=== PATIENT | female | born 1955 | race Caucasian/White ===

== ENCOUNTER → 2017-02-17 07:16 | Outpatient (CLI) | payer BC ==
[~2017-02-17 07:16] MED LIST: ALBUTEROL0.63 MG/3 INH; AUGMENTIN 500-11 TA1 PO; BAYER CHEWABLE81 MG PO; CO Q-10100 MG PO; COLCRYS0.6 MG PO; LASIX80 MG PO; PLAVIX75 MG PO; PRAVACHOL80 MG PO; RELAFEN750 MG PO; SINGULAIR10 MG PO; SYMBICORT 16010.2 GM INH; SYNTHROID150 MCG PO; ZYLOPRIM300 MG PO
[2017-02-24 10:07] VITALS: BMI 31.8
== END | disposition home or self-care (01) ==
LOC: D.RT 07:16
DX: J44.9 Chronic obstructive pulmonary disease, unspecified (principal)

== ENCOUNTER 2017-02-23 08:15 | Outpatient (CLI) | payer BC ==
[~2017-02-23] VITALS: Ht 157.5 cm; Wt 78.9 kg
--- NOTE | ~2017-02-23 | HEMODYNAMI ---
PATIENT:MADELAINE FRIEND MEDICAL RECORD: [id number] : 57 [id number] ADMISSION DATE: 02/23/17 Generatedon:02/24/20179:47 Patient name: MADELAINE FRIEND Patient #: [id number] : 1955 Date of study: 02/24/2017 Page: Of Hemodynamic Procedure Report Patient Data Patient Demographics Procedure consent was obtained First Name: MADELAINE Gender: Female Last Name: RONNA : 1955 [facility] Initial: L Age: 61 year(s) Patient #: [id number] Race: Unknown SSN: [id number] Additional ID: [id number] Contact details Address: [address] [place] [address] State: [place] City: [place] Zip code: [address] Admission Admission Data Admission Date: 02/23/2017 Admission Time: 8:15 Arrival Date: 02/23/2017 Arrival Time: 10:30 Admit Source: Other Insurance Payor: Private Room #: [id number] health insurance Height (in.): 62 BSA: 1.82 (m2) Height (cm.): 157.48 BMI: 32.74 (kg/m2) Weight (lbs.): 179 Weight (kg.): 81.19 Lab Results Lab Result Date: 02/23/2017 Lab Result Time: 0:00 Biochemistry Name Units Result Min Max BUN mg/dl 17 --(---*)-- 7 18 Creatinine mg/dl 1.1 --(--*-)-- 0.6 1.3 CBC Name Units Result Min Max Hemoglobin g/dl 12.5 *-(----)-- 13.5 17.5 Procedure Procedure Types Cath Procedure PCI Procedure Coronary Stent Initial Miscellaneous Procedures Moderate Sedation up to 15 minutes Procedure Description Procedure Date Procedure Date: 02/24/2017 Procedure Start Time: 9:36 Procedure End Time: 9:46 Procedure Staff Name Function Simone Chung MD Performing Physician Swathi Sorensen RT Scrub Latoya Richter RN Nurse Ahsan Liu RT Monitor Gabino Meredith RT Monitor Procedure Data Cath Procedure Fluoroscopy Diagnostic fluoroscopy Total fluoroscopy Time: 1.1 time: 1.1 min min Diagnostic fluoroscopy Total fluoroscopy dose: 101 dose: 101 mGy mGy Contrast Material Contrast Material Type Amount (ml) Isovue 300 29 Entry Location Entry Primary Successful Side Size Upsize Upsize Entry Closure Succes sful Closure Location (Fr) 1 (Fr) 2 (Fr) Remarks Device Remarks Femoral Left 6 Fr Exoseal artery Short Estimated blood loss: 10 ml Procedure Complications No complications Procedure Medications Medication Administration Route Dosage Oxygen NC 2 l/min Lidocaine 2% added to field 20 0.9% NaCl I.V. 100 ml/hr Heparin Flush Bag added to field 2 bags (1000units/500ml NS) Versed I.V. 1 mg Fentanyl I.V. 50 mcg Heparin Bolus I.V. 4000 units Versed I.V. 1 mg Fentanyl I.V. 50 mcg Fentanyl I.V. 25 mcg Hemodynamics Rest BSA: 1.82 (m2) O2 Consumption: Estimated: 247.52 (ml/min) O2 Consumption indexed : Estimated:136 (ml/min/m) Pre Cath Intra NCS Post Cath Vital Signs Time Heart Resp SPO2 NIBP Rhythm Pain Sedation Rate (ipm) (%) (mmHg) Status Level (bpm) 9:16:17 94 27 96 134/69(94) NSR 0 (11) 10(A) , No pain 9:20:33 89 29 95 128/66(91) NSR 0 (11) 10(A) , No pain 9:24:51 91 31 95 129/64(89) NSR 0 (11) 10(A) , No pain 9:29:01 88 26 96 115/63(83) NSR 0 (11) 10(A) , No pain 9:33:13 87 25 93 122/60(81) NSR 0 (11) 9(A) , No pain 9:37:25 87 23 94 123/65(90) NSR 0 (11) 9(A) , No pain 9:41:37 87 23 94 116/61(84) NSR 0 (11) 9(A) , No pain 9:44:31 87 21 94 121/64(87) NSR 0 (11) 10(A) , No pain Medications Time Medication Route Dose Verified Delivered Reason Notes Effectiveness by by 9:15:31 Oxygen NC 2 Simone Wuie used for l/min Sheldon Richter RN procedure 9:15:37 Lidocaine 2% added 20ml Simone Simone used for to vial Sheldon Chung MD procedure field 9:15:52 0.9% NaCl I.V. 100 Simone Wuie Per physician ml/hr Sheldon Richter RN 9:23:10 Heparin Flush added 2 Simone Simone used for Bag to bags Sheldon Chung MD procedure (1000units/500ml field NS) 9:30:25 Versed I.V. 1 mg Simone Klein for sedation Sheldon Richter RN 9:30:29 Fentanyl I.V. 50 Simone Wuie for sedation mcg Sheldon Richter RN 9:36:02 Versed I.V. 1 mg Simone Wuie for sedation Sheldon Richter RN 9:36:08 Fentanyl I.V. 50 Simone Klein for sedation mcg Sheldon Richter RN 9:37:09 Heparin Bolus I.V. 4000 Simone Wuie for verifie d units Sheldon Richter RN anticoagulation with dr chung 9:39:57 Fentanyl I.V. 25 Simone Klein for sedation mcg Sheldon Richter RN Procedure Log Time Note 8:57:58 Latoya Richter RN sent for patient. Start room use. 9:14:58 Time tracking: Regular hours 9:15:02 Plan of Care:Hemodynamics will remain stable., Cardiac rhythm will remain stable., Comfort level will be maintained., Respiratory function will remain adequate., Patient/ family verbilizes understanding of procedure., Procedure tolerated without complication., Recovers from procedure without complications.. 9:15:07 Patient received from PCU to CCL 2 Alert and oriented. Tansferred to table in Supine position. 9:15:08 Warm blankets applied, and madeline hugger turned on for patient comfort. 9:15:08 Correct patient and procedure confirmed by team. 9:15:10 Signed procedure consent form obtained from patient. 9:15:10 ECG and BP/O2 sat monitors applied to patient. 9:15:11 Vital chart was started 9:15:11 Full Disclosure recording started 9:15:14 Rhythm: sinus rhythm 9:15:24 H&P Date Dictated: 02/19/2017 Within 30 days and on chart.. 9:15:27 Pre-procedure instructions explained to patient. 9:15:27 Pre-op teaching completed and patient verbalized understanding. 9:15:28 Family in patients room. 9:15:30 Patient NPO since Midnight. 9:15:31 Oxygen 2 l/min NC was administered by Latoya Richter RN; used for procedure; 9:15:34 Is the patient allergic to Iodine/contrast media? No. 9:15:36 Is patient on blood thinner?Yes 9:15:37 Lidocaine 2% 20ml vial added to field was administered by Simone Chung MD; used for procedure; 9:15:38 ACC The patient was administered the following blood thiners within the last 24 hours: ACCPlavix 9:15:40 Patient diabetic? No. 9:15:43 Previous problem with sedation/anesthesia? No ? 9:15:44 Snore? Yes 9:15:45 Sleep apnea? No 9:15:46 Deviated septum? No 9:15:47 Opens mouth fully? Yes 9:15:48 Sticks out tongue? Yes 9:15:49 Airway obstruction? No ? 9:15:51 Dentures? No ? 9:15:52 0.9% NaCl 100 ml/hr I.V. was administered by Latoya Richter RN; Per physician; 9:15:55 Pre procedure: left dorsailis pedis pulse 2+ Normal; easily identifiable; not easily obliterated 9:15:57 Patient pain scale 0/10 ?. 9:16:06 IV patent on arrival in right forearm with 0.9% NaCl at KVO. 9:16:09 Lab results completed and on chart. 9:16:11 Left groin area was prepped with chlora-prep and draped in sterile fashion 9:16:11 Alarms reviewed by R. N. 9:16:11 Sharps counted by scrub and verified by R.N. 9:16:14 Use device set Femoral PCI 9:16:15 Acist Syringe opened to sterile field. 9:16:16 Acist Hand Control opened to sterile field. 9:16:16 Bag Decanter opened to sterile field. 9:16:16 Medline Cath Pack opened to sterile field. 9:16:16 Terumo 6Fr [place] Sheath opened to sterile field. 9:16:17 St Fred 260cm J .035 wire opened to sterile field. 9:16:17 Merit BasixCompak Inflation Kit opened to sterile field. 9:16:17 Acist Manifold opened to sterile field. 9:16:18 Tegaderm 4 x 4 opened to sterile field. 9:23:10 Heparin Flush Bag (1000units/500ml NS) 2 bags added to field was administered by Simone Chung MD; used for procedure; 9:: Physician arrived 9: --------ALL STOP TIME OUT------ :: Final Timeout: patient, procedure, and site verified with staff and physician. All members of the team are in agreement. 9:28:31 Left groin site verified by team. 9:28:35 Physical assessment completed. ASA score P 2 - A patient with mild systemic disease as per Simone Chung MD. 9:28:40 Sedation plan: IV Moderate Sedation Versed, Fentanyl 9:28:52 Zero performed for pressure channel P1 9:30:25 Versed 1 mg I.V. was administered by Latoya Richter RN; for sedation; 9:30:29 Fentanyl 50 mcg I.V. was administered by Latoya Richter RN; for sedation; 9:31:33 Cordis 6FR XBLAD 3.5 SH guide catheter opened to sterile field. 9:31:33 Sanchez Whisper J 300cm 0.014 guide wire opened to sterile field. 9:31:51 Cook 18G 7cm Percutaneous Entry needle opened to sterile field. 9:35:59 Procedure started. 9:36:02 Versed 1 mg I.V. was administered by Latoya Richter RN; for sedation; 9:36:08 Fentanyl 50 mcg I.V. was administered by Latoya Richter RN; for sedation; 9:36:09 Local anesthetic to left femerol artery with Lidocaine 2% by Simone Chung MD.INITIAL ACCESS ONLY 9:36:47 A 6 Fr Short sheath was inserted into the Left Femoral artery 9:37:09 Heparin Bolus 4000 units I.V. was administered by Latoya Richter RN; for anticoagulation; verified with dr chung 9:37:13 6 Fr XBLAD 3.5 SH guide catheter was inserted over the wire 9:38:18 WHISPER wire advanced. 9:39:17 Swathi Sorensen RT(R) was relieved by Gabino Meredith RT(R) as monitoring person 9:39:20 Wire advanced across lesion. 9:39:53 Inflation Number: 1 A Gabe OTW 2.5 x 15 stent was prepped and advanced across the Prox LAD. The stent was deployed at 15 EFREN for 0:10 (min:sec). 9:39:57 Fentanyl 25 mcg I.V. was administered by Latoya Richter RN; for sedation; 9:40:22 Stent catheter was removed intact over wire. 9:40:23 Wire removed. 9:40:23 Guide catheter removed. 9:40:28 Cordis 6Fr Exoseal opened to sterile field. 9:40:39 Sheath removed intact; hemostasis achieved with Exoseal to the Left Femoral artery. 9:40:40 Procedure ended.(Physican Out) 9:42:51 Fluoroscopy time 01.10 minutes. 9:42:53 Flurop Dose total: 101 9:42:53 Fluoroscopy dose: 101 mGy 9:42:56 Contrast amount:Isovue 300 29ml. 9:43:00 Sharps counted by scrub and verified by R.N. 9:43:01 Insertion/operative site no bleeding no hematoma. 9:43:04 Post-op/insertion site Left Femoral artery dressed using a 4 x 4 and Tegaderm. 9:43:08 Post left femerol artery:stable, soft, clean and dry 9:43:09 Post Procedure Pulses reassessed and unchanged 9:43:11 Post-procedure physical assessment completed. ASA score P 2 - A patient with mild systemic disease as per Simone Chung MD. 9:43:13 Post procedure rhythm: unchanged. 9:43:15 Estimated blood loss: 10 ml 9:43:16 Post procedure instruction explained to patient.Patient verbalizes understanding. 9:43:16 Patient needs reinforcement of post procedure teaching. 9:45:09 Procedure type changed to Cath procedure, PCI procedure, Coronary Stent Initial, Miscellaneous Procedures, Moderate Sedation up to 15 minutes 9:46:38 Procedure and supply charges have been captured, reviewed, submitted and are correct. 9:46:40 Procedure Complication : No complications 9:46:42 Vital chart was stopped 9:46:42 See physician's report for complete and final results. 9:46:54 Report given to PCU. 9:46:56 Patient transfered to PCU with Stretcher. 9:46:58 Procedure ended. 9:46:58 Full Disclosure recording stopped 9:47:02 End room use (Document Last) Intervention Summary Intervention Notes Time ActionType Lesion and Equipment Action# Pressure Duration Attributes Used 9:39:53 Place stent Prox LAD [place] OTW 1 15 00:10 2.5 x 15 stent Device Usage Item Name Manufacture Quantity Catalog Hospital Part Current Minima l Lot# / Number Charge Number Stock Stock Serial# Code Acist Acist 1 90076 691314 963473 844884 20 Syringe Medical Systems Inc Acist Hand Acist 1 98541 250667 532101 950810 5 Control Medical Systems Inc Bag Decanter Microtek 1 2002S 629393 54912 368939 5 Medical Inc. Medline Cath Cardinal 1 [id number] 477410 07681 727315 5 [employer] Terumo 6Fr Terumo 1 [id number] 901201 128343 070458 [address] Fred 1 750739 320130 709743 946359 30 260cm J .035 wire Merit Merit 1 CL5211 768768 350324 945066 15 BasixCompak Medical Inflation Kit Acist Acist 1 97027 487763 462571 921320 5 Manifold Medical Systems Inc Tegaderm 4 x 3M 1 1626W 523723 806997 245518 5 4 Sanchez Sanchez 1 [id number] 823914 046238 177813 5 Whisper J Vascular 300cm 0.014 guide wire Cook 18G 7cm Cook Medical 1 [id number] 443988 39993 679595 5 Percutaneous Entry needle [place] OTW 2.5 Medtronic 1 [id number] 335178 60634 719540 5 [id number] x 15 stent Cordis 6Fr Cardinal 1 EX600 756007 084714 824597 10 Exoseal Health Cordis 6FR Cardinal 1 [id number] 097033 796362 099950 3 XBLAD 3.5 Acacia Interactive guide catheter Signature Audit [place] Stage Time Signature Unsigned Intra-Procedure 02/24/2017 Gabino Meredith 9:47:22 AM RT(R) Signatures Monitor : Ahsan Liu RT Signature : Date : Time : Monitor : Gabino Meredith RT Signature : Date : Time : [address] [place] [address]
--- NOTE | ~2017-02-23 | DS ---
PATIENT:MADELAINE HERNANDEZ :57 MEDICAL RECORD: [id number] DISCHARGE SUMMARY ADMISSION DATE: 02/23/17 DISCHARGE DATE: DATE OF DISCHARGE: 02/24/2017. DISCHARGE DIAGNOSES: 1. Percutaneous transluminal coronary angioplasty stent to right coronary artery and left anterior descending this admission. 2. Unstable angina. 3. Coronary artery disease. 4. Bronchitis. 5. Hypertension. 6. Hyperlipidemia. HOSPITAL COURSE: Ms. Hernandez presents with anginal symptomatology as well as bronchitis, underwent successful PTCA stent of the RCA and LAD, had IV antibiotics in the form of Rocephin and changed to Augmentin, had the addition of aspirin and Plavix to her medical regimen. Will follow up with [facility] in 1 month. TRANSINT:[id number] Voice Confirmation ID: [id number] DOCUMENT ID: [id number] TAPAN SNYDER MD CC: [id number] DICTATION DATE: 02/24/17945 PAIRER: 02/24/17 1152 [facility] [address] [place] [address]
--- NOTE | ~2017-02-23 | OP ---
PATIENT NAME: MADELAINE FRIEND MEDICAL RECORD: [id number] :57 LOCATION:D.M2 D.2133 ADMISSION DATE: SURGEON: TAPAN SNYDER MD DATE OF OPERATION: 02/23/2017 PROCEDURES: 1. PTCA and stent, RCA. 2. Left heart catheterization. 3. Selective coronary angiography. 4. Vein graft angiography. 5. DENNY angiography. 6. Left ventriculogram. INDICATION: Angina and coronary artery disease. PROCEDURE IN DETAIL: After informed consent was obtained and after detailed explanation of risks and benefits as well as alternative therapies, the patient elected to proceed with angiogram and angioplasty. The right femoral area was prepped and draped in normal sterile fashion. The right femoral artery was cannulated via modified Seldinger technique with placement of a 6-Pashto sheath. All catheters were exchanged through this sheath. FINDINGS: The left ventriculogram was performed in standard 30-degree [place] view, revealed good cardiac wall motion throughout all segments. Overall ejection fraction estimated at 60%. SELECTIVE CORONARY ANGIOGRAPHY: 1. Left main showed no significant angiographic disease. 2. Left anterior descending had 80% stenosis proximally. 3. DENNY to LAD was closed. 4. Vein graft to the LAD diagonal was widely patent. The LAD diagonal was totally occluded at the ostium; hence, does not backfill the LAD. 5. Left circumflex had 100% stenosis of the first obtuse marginal. 6. Vein graft to the first obtuse marginal was widely patent. 7. Right coronary was totally occluded. 8. Vein graft to the right coronary was totally occluded; however, after this, the right coronary had 95% stenosis. PTCA AND STENT OF THE RIGHT CORONARY THROUGH THE PATENT VEIN GRAFT: Stent used was 2.25 x 15-mm Gabe. Result was 0% residual stenosis. OVERALL IMPRESSION: Successful PTCA and stent of the right coronary going from 95% initial stenosis to 0% residual. PLAN: PTCA and stent of the LAD in the near future. TRANSINT:[id number] Voice Confirmation ID: [id number] DOCUMENT ID: [id number] OPERATIVE REPORT [id number] MADELAINE FRIEND TAPAN SNYDER MD CC: [id number] DICTATION DATE: 02/23/17 1058 PAINTER SPRAY: 02/23/17 1235 [facility] [address] [place] [address]
--- NOTE | ~2017-02-23 | HEMODYNAMI ---
PATIENT:MADELAINE FRIEND MEDICAL RECORD: [id number] : 57 LOCATION:[facility] ADMISSION DATE: 02/23/17 Generatedon:02/23/201710:58 Patient name: MADELAINE FRIEND Patient #: [id number] : 1955 Date of study: 02/23/2017 Page: Of Hemodynamic Procedure Report Patient Data Patient Demographics Procedure consent was obtained First Name: MADELAINE Gender: Female Last Name: RONNA : 1955 Middle Initial: L Age: 61 year(s) Patient #: [id number] Race: Unknown SSN: [id number] Additional ID: [id number] Contact details Address: [address] [place] [address] State: [place] City: [place] Zip code: [address] Admission Admission Data Admission Date: 02/23/2017 Admission Time: 8:15 Arrival Date: 02/23/2017 Arrival Time: 10:30 Admit Source: Other Insurance Payor: Private health insurance Height (in.): 62 BSA: 1.82 (m2) Height (cm.): 157.48 BMI: 32.74 (kg/m2) Weight (lbs.): 179 Weight (kg.): 81.19 Lab Results Lab Result Date: 02/23/2017 Lab Result Time: 0:00 Biochemistry Name Units Result Min Max BUN mg/dl 17 --(---*)-- 7 18 Creatinine mg/dl 1.1 --(--*-)-- 0.6 1.3 CBC Name Units Result Min Max Hemoglobin g/dl 12.5 *-(----)-- 13.5 17.5 Procedure Procedure Types Cath Procedure Diagnostic Procedure LHC LHC w/Coronaries w/Grafts PCI Procedure SVG-BMS/KAREN Initial Miscellaneous Procedures Moderate Sedation up to 30 minutes Procedure Description Procedure Date Procedure Date: 02/23/2017 Procedure Start Time: 10:40 Procedure End Time: 10:56 Procedure Staff Name Function Simone Chung MD Performing Physician Bharati Cherry RT Scrub Rodolfo Spence RN Nurse Ahsan Liu RT Monitor Indication Angina Procedure Data Cath Procedure Fluoroscopy Diagnostic fluoroscopy Total fluoroscopy Time: 4.5 time: 4.5 min min Diagnostic fluoroscopy Total fluoroscopy dose: 756 dose: 756 mGy mGy Contrast Material Contrast Material Type Amount (ml) Isovue 300 118 Entry Location Entry Primary Successful Side Size Upsize Upsize Entry Closure Succes sful Closure Location (Fr) 1 (Fr) 2 (Fr) Remarks Device Remarks Femoral Right 5 Fr 6 Fr Exoseal artery Short Estimated blood loss: 5 ml Diagnostic catheters Device Type Used For End Catheter Placement Cordis 5Fr Pigtail LV Angiography Catheter (MP) Cordis 5Fr JL 4.0 Left Coronary Catheter (MP) Angiography Cordis 5Fr 3DRC Catheter Right Coronary (MP) Angiography Diagnostic Infinity 5Fr Multi-vessel AR 2 MOD catheter Angiography Procedure Complications No complications Procedure Medications Medication Administration Route Dosage Oxygen NC 3 l/min Heparin Flush Bag added to field 2 bags (1000units/500ml NS) 0.9% NaCl I.V. 100 ml/hr Fentanyl I.V. 50 mcg Versed I.V. 1 mg Fentanyl I.V. 50 mcg Versed I.V. 1 mg Heparin Bolus I.V. 4000 units Hemodynamics Rest BSA: 1.82 (m2) HGB: 12.5 (g/dl) O2 Consumption: Estimated: 192.61 (ml/min) O2 Co nsumption indexed: Estimated:105.83 (ml/min/m) Heart Rate: 99 (bpm) Pressure Samples Time Site Value (mmHg) Purpose Heart Use Rate(bpm) 10:41 LV 59/8,18 Snapshot 92 Snapshots Pre Cath Intra NCS Post Cath Vital Signs Time Heart Resp SPO2 NIBP Rhythm Pain Sedation Rate (ipm) (%) (mmHg) Status Level (bpm) 10:29:43 99 20 96 138/71(98) NSR 0 (11) 10(A) , No pain 10:33:49 96 19 97 137/69(99) NSR 0 (11) 10(A) , No pain 10:37:57 91 20 93 115/62(87) NSR 0 (11) 9(A) , No pain 10:42:05 90 22 90 124/62(86) NSR 0 (11) 9(A) , No pain 10:46:08 89 22 90 120/65(85) NSR 0 (11) 9(A) , No pain 10:50:14 88 21 90 120/61(77) NSR 0 (11) 9(A) , No pain 10:54:22 93 23 92 124/66(83) NSR 0 (11) 9(A) , No pain 10:57:08 89 23 91 117/63(83) NSR 0 (11) 9(A) , No pain Medications Time Medication Route Dose Verified Delivered Reason Notes Effectiveness by by 10:30:09 Oxygen NC 3 Rodolfo Rodolfo Per physician l/min Jordy Spence RN RN 10:30:18 Heparin Flush added 2 Rodolfo Rodolfo used for Bag to bags Jordy Spence RN procedure (1000units/500ml field RN NS) 10:30:30 0.9% NaCl I.V. 100 Rodolfo Rodolfo Per physician ml/hr Jordy Spence RN RN 10:34:00 Fentanyl I.V. 50 Rodolfo Rodolfo for sedation mcg Jordy Spence RN RN 10:34:07 Versed I.V. 1 mg Rodolfo Rodolfo for sedation Jordy Spence RN RN 10:36:39 Fentanyl I.V. 50 Rodolfo Rodolfo for sedation mcg Jordy Spence RN RN 10:36:45 Versed I.V. 1 mg Rodolfo Rodolfo for sedation Jordy Spence RN RN 10:47:57 Heparin Bolus I.V. 4000 Rodolfo Rodolfo for units Jordy Spence RN anticoagulation handbag framer Log Time Note 10:10:38 Rodolfo Spence RN sent for patient. Start room use. 10:17:51 Informed consent obtained and on chart 10:18:05 Diagnostic Cath Status : Elective 10:18:35 Indication : Angina 10:18:45 Time tracking: Regular hours 10:18:49 Plan of Care:Hemodynamics will remain stable., Cardiac rhythm will remain stable., Comfort level will be maintained., Respiratory function will remain adequate., Patient/ family verbilizes understanding of procedure., Procedure tolerated without complication., Recovers from procedure without complications.. 10:20:40 Admit Source: Other 10:20:47 Arrival Date: 02/23/2017 10:30:00 AM 10:21:06 Insurance Payor : Private health insurance 10:21:22 Patient Height : 157.48 inches 10:21:28 Patient Weight : 81.19 lbs 10::51 Lab Result : Hemoglobin 12.5 g/dl 10::51 Lab Result : Creatinine 1.1 mg/dl 10::51 Lab Result : BUN 17 mg/dl 10:23:02 Patient received from Pre/Post Procedure Room to CCL 2 Alert and oriented. Tansferred to table in Supine position. 10:23:03 Warm blankets applied, and madeline hugger turned on for patient comfort. 10:23:03 Correct patient and procedure confirmed by team. 10:23:04 ECG and BP/O2 sat monitors applied to patient. 10:28:45 Vital chart was started 10:30:09 Oxygen 3 l/min NC was administered by Rodolfo Spence RN; Per physician; 10:30:18 Heparin Flush Bag (1000units/500ml NS) 2 bags added to field was administered by Rodolfo Spence RN; used for procedure; 10:30:30 0.9% NaCl 100 ml/hr I.V. was administered by Rodolfo Spence RN; Per physician; 10:32:15 Baseline sample Acquired. 10:32:18 Full Disclosure recording started 10:32:33 H&P Date Dictated: 02/19/2017 Within 30 days and on chart., H&P Addendum completed by physician on day of procedure. (MUST COMPLETE FOR ALL OUTPATIENTS). 10:32:35 Pre-procedure instructions explained to patient. 10:32:35 Pre-op teaching completed and patient verbalized understanding. 10:32:36 Family in waiting room. 10:32:37 Patient NPO since Midnight. 10:32:44 Is the patient allergic to Iodine/contrast media? No. 10:32:46 Was the patient premedicated? No 10:32:48 Is patient on blood thinner?Yes 10:32:50 ACC The patient was administered the following blood thiners within the last 24 hours: ACCPlavix 10:32:52 Patient diabetic? No. 10:32:54 Previous problem with sedation/anesthesia? No ? 10:32:56 Snore? Yes 10:32:57 Sleep apnea? No 10:32:59 Deviated septum? No 10:32:59 Opens mouth fully? Yes 10:33:00 Sticks out tongue? Yes 10:33:01 Airway obstruction? No ? 10:33:05 Dentures? Yes out 10:33:08 Pre procedure: left dorsailis pedis pulse 1+ Palpable, but thready & weak; easily obliterated 10:33:11 Pre procedure: right dorsailis pedis pulse 2+ Normal; easily identifiable; not easily obliterated 10:33:14 Patient pain scale 0/10 ?. 10:33:20 IV patent on arrival in right forearm with 0.9% NaCl at [facility]. 10:33:23 Lab results completed and on chart. 10:33:26 Right groin area was prepped with chlora-prep and draped in sterile fashion 10:33:27 Alarms reviewed by R. N. 10:33:27 Sharps counted by scrub and verified by R.N. 10:33:28 Physician arrived 10:33:29 --------ALL STOP TIME OUT------ 10:33:30 Final Timeout: patient, procedure, and site verified with staff and physician. All members of the team are in agreement. 10:33:32 Right groin site verified by team. 10:33:34 Physical assessment completed. ASA score P 2 - A patient with mild systemic disease as per Simone Chung MD. 10:33:38 Sedation plan: IV Moderate Sedation Versed, Fentanyl 10:34:00 Fentanyl 50 mcg I.V. was administered by Rodolfo Spence RN; for sedation; 10:34:07 Versed 1 mg I.V. was administered by Rodolfo Spence RN; for sedation; 10:36:39 Fentanyl 50 mcg I.V. was administered by Rodolfo Spence RN; for sedation; 10:36:45 Versed 1 mg I.V. was administered by Rodolfo Spence RN; for sedation; 10:39:55 Zero performed for pressure channel P1 10:40:12 Use device set Femoral Dx 10:40:13 Acist Syringe opened to sterile field. 10:40:13 Bag Decanter opened to sterile field. 10:40:14 Medline Cath Pack opened to sterile field. 10:40:14 Terumo 5Fr [place] Sheath opened to sterile field. 10:40:15 St Fred 260cm J .035 wire opened to sterile field. 10:40:16 Acist Hand Control opened to sterile field. 10:40:16 Acist Manifold opened to sterile field. 10:40:17 Diagnostic Infinity 5Fr Multipack catheter opened to sterile field. 10:40:17 Tegaderm 4 x 4 opened to sterile field. 10:40:21 Procedure started. 10:40:24 Local anesthetic to right femoral artery with Lidocaine 2% by Simone Chung MD.INITIAL ACCESS ONLY 10:40:31 A 5 Fr sheath was inserted into the Right Femoral artery 10:40:36 A Cordis 5Fr Pigtail Catheter (MP) was advanced over the wire and used for LV Angiography. 10:41:33 LV hemodynamics recorded. 10:41:34 LV gram done using PALAFOX 10:41:40 EF : 60 % 10:41:42 Catheter removed. 10:41:57 A Cordis 5Fr JL 4.0 Catheter (MP) was advanced over the wire and used for Left Coronary Angiography. 10:42:31 LCA angiography performed. 10:42:44 Catheter removed. 10:42:52 A Cordis 5Fr 3DRC Catheter (MP) was advanced over the wire and used for Right Coronary Angiography. 10:43:18 DENNY angiography performed. 10:43:42 Sanchez Whisper J 300cm 0.014 guide wire opened to sterile field. 10:43:42 [employer] BasixCompak Inflation Kit opened to sterile field. 10:43:43 Terumo 6Fr [place] Sheath opened to sterile field. 10:43:50 Injector settings: Ml/sec: 3, Volume: 6, 10:43:54 RCA angiography performed. 10:44:20 RCA totally occluded 10:45:13 A Diagnostic Infinity 5Fr AR 2 MOD catheter was advanced over the wire and used for Multi-vessel Angiography. 10:45:37 SVG to OM angiography performed. 10:45:47 SVG to Diag angiography performed. 10:46:33 SVG to RCA angiography performed. 10:47:40 Catheter removed. 10:47:47 Cloud Dynamicstronic Launcher 6Fr AR 2.0 guide catheter opened to sterile field. 10:47:54 Proceeding to intervention. 10:47:57 Heparin Bolus 4000 units I.V. was administered by Rodolfo Spence RN; for anticoagulation; 10:48:03 Sheath upsized to a 6 Fr Short. 10:48:10 6 Fr ar 2 guide catheter was inserted over the wire 10:48:17 whisper wire advanced. 10:48:30 Wire advanced across lesion. 10:52:28 Inflation Number: 1 A Gabe OTW 2.25 x 15 stent was prepped and advanced across the Aorta Right -> Mid RCA. The stent was deployed at 13 EFREN for 0:10 (min:sec). 10:53:14 Stent catheter was removed intact over wire. 10:53:14 Wire removed. 10:53:15 Guide catheter removed. 10:53:50 Cordis 6Fr Exoseal opened to sterile field. 10:54:11 Sheath removed intact; hemostasis achieved with Exoseal to the Right Femoral artery. 10:54:13 Procedure ended.(Physican Out) 10:54:24 Fluoroscopy time 04.50 minutes. 10:54:29 Fluoroscopy dose: 756 mGy 10:54:29 Flurop Dose total: 756 10:54:33 Contrast amount:Isovue 300 118ml. 10:54:35 Sharps counted by scrub and verified by R.N. 10:54:36 Insertion/operative site no bleeding no hematoma. 10:54:38 Post-op/insertion site Right Femoral artery dressed using a 4 x 4 and Tegaderm. 10:54:42 Post right femoral artery:stable 10:54:46 Post procedure rhythm: unchanged. 10:54:48 Estimated blood loss: 5 ml 10:54:49 Post procedure instruction explained to patient.Patient verbalizes understanding. 10:54:50 Patient needs reinforcement of post procedure teaching. 10:55:27 Procedure type changed to Cath procedure, Diagnostic procedure, LHC, LHC w/Coronaries w/Grafts, PCI procedure, SVG-BMS/KAREN Initial, Miscellaneous Procedures, Moderate Sedation up to 30 minutes 10:55:45 Procedure and supply charges have been captured, reviewed, submitted and are correct. 10:55:50 Procedure Complication : No complications 10:55:52 Vital chart was stopped 10:55:53 See physician's report for complete and final results. 10:55:56 Report given to [facility]. 10:56:06 Patient transfered to [facility] with Stretcher. 10:56:08 Procedure ended. 10:56:08 Full Disclosure recording stopped 10:56:14 ACC-PCI Only Patient was given prescriptions, or instructed by Simone Chung MD to start/continue the following medications upon discharge: Plavix 10:56:15 End room use (Document Last) Intervention Summary Intervention Notes Time ActionType Lesion and Equipment Action# Pressure Duration Attributes Used 10:52:28 Place stent Aorta Right Gabe OTW 1 13 00:10 -> Mid RCA 2.25 x 15 stent Device Usage Item Name Manufacture Quantity Catalog Hospital Part Current Minimal Lot# / Number Charge Number Stock Stock Serial# Code Acist Acist 1 10963 456405 993063 801206 20 Syringe Medical Systems Inc Bag Microtek 1 2002S 146556 75325 016952 5 DecPhilo Media Medical Inc. Medline Cardinal 1 [id number] 096281 90356 737935 5 Cath Pack Health Terumo 5Fr Terumo 1 [id number] 977481 188056 031480 [address] Fred 1 096083 982100 838383 933219 30 260cm J .035 wire Acist Hand Acist 1 62368 267758 856101 662085 5 Control Medical Systems Inc Acist Acist 1 88572 671343 924764 758471 5 Manifold Medical Systems Inc Diagnostic Cardinal 1 [id number] 945898 16299 350506 30 Infinity Health 5Fr Multipack catheter Tegaderm 4 3M 1 1626W 603221 435649 183570 5 x 4 Cordis 5Fr Cardinal 1 334534 5 Pigtail Health Catheter (MP) Cordis 5Fr Cardinal 1 503116 5 JL 4.0 Health Catheter (MP) Cordis 5Fr Cardinal 1 461038 5 3DRC Health Catheter (MP) Sanchez Sanchez 1 [id number] 788575 624120 990110 5 Whisper J Vascular 300cm 0.014 guide wire Merit Merit 1 [id number] 700117 577430 333568 15 Magnitude Software Medical Inflation Kit Terumo 6Fr Terumo 1 PIZ357 019734 040720 995355 40 [place] Sheath Diagnostic Cardinal 1 [id number] 471468 228211 243915 20 Infinity Health 5Fr AR 2 MOD catheter Medtronic Medtronic 1 [id number] 461223 73243 950342 1 Launcher 6Fr AR 2.0 guide catheter Kanosh OTW Medtronic 1 [id number] 47308 650984 5 [id number] 2.25 x 15 stent Cordis 6Fr Cardinal 1 EX600 093765 354746 695255 10 [facility] Health Signature Audit [place] Stage Time Signature Unsigned Intra-Procedure 02/23/2017 Bharati Dilip 10:58:49 AM RT(R) Signatures Monitor : Ahsan Liu RT Signature : Date : Time : [id number] [place] [address]
--- NOTE | ~2017-02-23 | OP ---
PATIENT NAME: MADELAINE FRIEND MEDICAL RECORD: [id number] :57 LOCATION:[facility]. D.2133 ADMISSION DATE: SURGEON: TAPAN SNYDER MD DATE OF OPERATION: 02/24/2017 PROCEDURES: 1. PTCA stent to the LAD. 2. Selective coronary angiography. INDICATION: Angina and coronary artery disease. PROCEDURE IN DETAIL: After informed consent was obtained and after detailed explanation of risks, benefits as well as alternative therapies, the patient elected to proceed with angiogram and angioplasty. The left femoral area was prepped and draped in normal sterile fashion. Left femoral artery was cannulated via modified Seldinger technique with placement of 6-Serbian sheath. All catheters exchanged through this sheath. FINDINGS: The left anterior descending had 75% stenosis proximally. This had a closed DENNY graft. This was addressed with a 2.5 x 15 mm Onxy stent. Result was 0% residual stenosis. OVERALL IMPRESSION: Successful percutaneous transluminal coronary angioplasty stent of the left anterior descending going from 75% initial stenosis to 0% residual stenosis. TRANSINT:[id number] Voice Confirmation ID: [id number] DOCUMENT ID: [id number] TAPAN SNYDER MD CC: [id number] DICTATION DATE: 02/24/17 0947 QUALITY ASSURANCE COACH: 02/24/17 1111 [facility] [address] [id number]
[2017-02-23] MEDS ORDERED: PLAVIX75 MG PO (09:22)
[2017-02-23] MEDS ORDERED: SYMBICORT 16010.2 GM INH (09:22)
[2017-02-23] MEDS ORDERED: ALBUTEROL0.63 MG/3 INH (09:23)
[2017-02-23] MEDS ORDERED: RELAFEN750 MG PO (09:23)
[2017-02-23] MEDS ORDERED: SINGULAIR10 MG PO (09:23)
[2017-02-23] MEDS ORDERED: SYNTHROID150 MCG PO (09:24)
[2017-02-23] MEDS ORDERED: LASIX80 MG PO (09:24)
[2017-02-23] MEDS ORDERED: PRAVACHOL80 MG PO (09:24)
[2017-02-23] MEDS ORDERED: CO Q-10100 MG PO (09:25)
[2017-02-23] MEDS ORDERED: COLCRYS0.6 MG PO (09:25)
[2017-02-23] MEDS ORDERED: ZYLOPRIM300 MG PO (09:25)
[2017-02-23] MEDS ORDERED: BAYER CHEWABLE81 MG PO (09:25)
[2017-02-23 09:36] VITALS: BP 134/61; BMI 31.9
[2017-02-23 09:48] LABS: BASOPHILS 0.5 % (0-2); EOSINOPHILS 44.1 % (0-7); HEMATOCRIT 37.6 % (36.0-48.0); HEMOGLOBIN 12.5 g/dL (12-16); IMMATURE GRANULOCYTES 0.3 % (0-5); LYMPHOCYTES 21.4 % (15-50); MCH 31.2 pg (26.0-34.0); MCHC 33.2 g/dL (31.0-37.0); MCV 93.8 fL (80.0-100.0); MEAN PLATELET VOLUME 11.2 fL (7.4-10.4); MONOCYTES 7.3 % (2-11); NEUTROPHILS 26.4 % (40-80); PLATELET COUNT 273 10x3/uL (130-400); RBC 4.01 10x6/uL (4.00-5.40); WBC 16.8 10x3/uL (4.8-10.8)
[2017-02-23 10:10] LABS: ANION GAP 15.7 mmol/L (8-16); CALCIUM 8.4 mg/dL (8.5-10.1); CARBON DIOXIDE 25.5 mmol/L (21.0-32.0); CREATININE - SERUM 1.1 mg/dL (0.6-1.3); POTASSIUM - SERUM 3.2 mmol/L (3.5-5.1)
--- NOTE | 2017-02-23 11:26 | NUR ---
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 RIGHT GROIN WITH SOFT TO PALPATION DRESSING SITE. PPP AND STRONG. ON 2L PER NC. IV INFUSING TO RIGHT INNER FOREARM. DENIES NEEDS EXCEPT ICE CHIPS. TO LAY FLAT X 4 HOURS. PLACED ON HEART MONITOR. WILL ADMIT.
[2017-02-23 11:31] VITALS: BP 128/70
[2017-02-23 12:48] VITALS: BP 128/70
--- NOTE | 2017-02-23 13:08 | NUR ---
PATIENT CLEANED UP FROM INCONT. OF URINE (FROM COUGHING). RIGHT GROIN SITE IS STILL SOFT, NO HEMATOMA. PPP AND STRONG. STILL LAYING FLAT.
--- NOTE | 2017-02-23 14:03 | NUR ---
PATIENT CLEANED AGAIN FROM INCON. OF URINE. HAD PLACED PATIENT ON FRACTURE BEDPAN AND SHE STATES THAT SHE CAN NOT USE ONE.
--- NOTE | 2017-02-23 15:19 | NUR ---
FEMALE MEMBER IN ROOM AT BEDSIDE. PATIENT IS SAT UP AT 30 DEGREES. WILL MONITOR.
--- NOTE | 2017-02-23 15:36 | NUR ---
PATIENT TO COMPLAIN OF "STUFFY NOSE". PLACED ON HUMMIDIFIED WATER/O2 AND CHAPSTICK GIVEN PER "DRY LIPS". PLACED AT 35-40 DEGREES. DENIES ANY FURTHER NEEDS OR DISCOMFORT.
--- NOTE | 2017-02-23 16:15 | NUR ---
SITTING UPRIGHT, REQUESTS ICE WATER, GIVEN. RIGHT GROIN IS SOFT, NON TENDER. PPP AND STRONG. WILL MONITOR,
--- NOTE | 2017-02-23 16:50 | NUR ---
SITTING UP IN THE BED ON CELL PHONE. DENIES NEEDS. WILL CONTINUE TO MONITOR.
--- NOTE | 2017-02-23 17:04 | NUR ---
1705-HEART CATH PERMIT SIGNED AND WITNESSED, ON CHART.
[2017-02-23 17:14] VITALS: BP 145/47
--- NOTE | 2017-02-23 18:28 | NUR ---
PATIENT REQUESTING TO GET OOB. ASSISTED PATIENT TO SIT AT EDGE OF BED. TOLERATED WELL AND THEN ASSISTED PT TO STAND AT THE EDGE OF BED. PT DENIES LIGHTHEADEDNESS OR DIZZINESS. ASSISTED PT INTO BATHROOM TO VOID AND ASSISTED HER BACK TO BED. REQUESTED ICE WATER, GIVEN. NO OTHER COMPLAINTS. GROIN CATH SITE SOFT, DSG C/D/I. PPP AND STRONG. PT SITTING AT EDGE OF BED. SPOUSE PRESENT IN ROOM.
[2017-02-23 19:00] VITALS: BP 138/54
--- NOTE | 2017-02-23 19:35 | NUR ---
ASSESSMENT COMPLETE, A&O. RESPERATIONS EVEN ON AT 2 LITER VIA NC. IV TO INNER RIGHT FOREARM WITH NS INFUSING AT 100 CC/HR. SITE CLEAN AND DRY. PT DENIES PAIN OR NEEDS, BED LOW, CL IN REACH, AT BED SIDE.
[2017-02-24] VITALS: BP 138/94
--- NOTE | 2017-02-24 00:36 | NUR ---
RESTING WITH EYES CLOSED, RESPERATIONS EVEN, NO S/S DISTRESS NOTED. ASLEEP AT BED SIDE.
--- NOTE | 2017-02-24 02:31 | NUR ---
LYING IN BED, CALL LIGHT IN REACH. WILL CONTINUE WITH PLAN OF CARE
[2017-02-24 04:00] VITALS: BP 118/52
--- NOTE | 2017-02-24 05:26 | NUR ---
MASONRY INSTALLER AT BED SIDE, HIBICLENSE WIPES AND CLEAN GOWN GIVEN TO PT.
[2017-02-24 08:17] VITALS: BP 106/43
[2017-02-24 10:07] VITALS: Ht 157.5 cm; Wt 78.9 kg
[2017-02-24] MEDS ORDERED: AUGMENTIN 500-11 TA1 PO (11:49)
--- NOTE | 2017-02-24 15:25 | NUR ---
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 NO EDEMA OR BLEEDING NOTED. HAS LAID FLAT FOR 4 HOURS WITHOUT ANY DIFFICULTY.
--- NOTE | 2017-02-24 16:01 | NUR ---
AMBULATED WITHOUT ANY ISSUES. NO BLEEDING NOR EDEMA NOTED AT SITE. DISCHARGE INSTRUCTIONS GIVEN TO BOTH PT AND . BOTH VERBALIZE UNDERSTANDING. TO CAR VIA WC.
== END 2017-02-24 16:05 | disposition home or self-care (01) ==
LOC: D.M2 08:15 → D.CATH 08:15 → D.M2 11:13 → D.CATH 02-24 16:05
PROVIDERS: Internal Medicine Interventional Cardiology
DX: I25.119 Atherosclerotic heart disease of native coronary artery with unspecified angina pectoris (principal); Z01.812 Encounter for preprocedural laboratory examination; I10 Essential (primary) hypertension; E78.5 Hyperlipidemia, unspecified; J40 Bronchitis, not specified as acute or chronic

== ENCOUNTER → 2017-09-18 13:03 | Outpatient (CLI) | payer BC ==
[2017-02-24 10:07] VITALS: BMI 31.8
== END | disposition home or self-care (01) ==
LOC: D.RT 13:03
DX: R59.0 Localized enlarged lymph nodes (principal)

== ENCOUNTER → 2017-10-09 09:15 | Day surgery (SDC) | payer BC ==
[~2017-10-09] VITALS: Ht 156.2 cm; Wt 80.0 kg
--- NOTE | ~2017-10-09 | OP ---
PATIENT NAME: MADELAINE FRIEND MEDICAL RECORD: [id number] :57 [facility] ADMISSION DATE: SURGEON: CINTIA MCKEON MD DATE OF OPERATION: 10/09/2017 PREOPERATIVE DIAGNOSIS: Chronic bilateral pansinusitis. POSTOPERATIVE DIAGNOSIS: Chronic bilateral pansinusitis. PROCEDURE: Bilateral endoscopic middle meatal antrostomy, ethmoidectomy, sphenoidotomy. SURGEON: Cintia Mckeon MD ANESTHESIA: General orotracheal. BLOOD LOSS: Less than 10 cc. SPECIMENS: Cultures, both maxillary sinuses and ethmoids. COMPLICATIONS: None. NASAL PACKING: None. DISPOSITION: Recovery stable. DESCRIPTION OF PROCEDURE: She was brought to the operating room and placed in supine position, sedated and intubated by anesthesia. The table was turned to 90 degrees. Head drape was applied, her nose was examined using a headlight and nasal speculum. She had been decongested with Afrin preoperatively. The inferior turbinates, the middle turbinate, lateral nasal wall were injected with a total of 1 cc of 1% lidocaine with 1:100,000 epinephrine on a long 27-gauge needle. An Afrin pledget was placed in the middle meatus and along the inferior turbinate on both sides of the nose. She was positioned, prepped and draped in the usual fashion for sinus surgery. The left side was addressed first, both Afrin pledgets were removed. The nose was examined with a 0-degree scope, she was having a septal spur near the middle meatus, but the inferior turbinate was outfractured with a Metcalfe elevator, as I looked back the superior turbinate was edematous. There was purulence coming from the sphenoid ostia. Cultures were obtained. A 7-Sudanese suction was inserted and a freer was used to compress the middle turbinate and the superior turbinate all the way get into this ostia just basically following the drainage of the purulence. Once in the sinus, it was suctioned out and irrigated with saline repeatedly. The bony opening was adequate, but there was mucosal edema around there, but it was rinsed out. Then the middle turbinate was medialized. The ethmoid bulla was taken down with a microdebrider. There was not too much purulence in the ethmoids actually, so just took down the anterior ethmoid there and then got into the maxillary sinus with a large curved olive tip suction, just copious thick purulence was filling that sinus. This was drained with a Luki trap for culture as well. That maxillary sinus was then irrigated repeatedly with saline. An Afrin pledget was placed in the middle meatus. The right side was then addressed. Again, the inferior turbinate was outfractured with a Metcalfe elevator for better visualization. There was some thickening of the septum, was able to follow purulent drainage again back to the sphenoid ostium, inserted a 7-Sudanese suction into the sphenoid sinus, suctioned it out and irrigated with saline. Again, the OPERATIVE REPORT [id number] RONNAGEORGETTEMADELAINE Angelo middle turbinate was medialized with a freer and the anterior ethmoid cavity was taken down starting with the bulla inferomedially with the microdebrider. Really the ethmoids were actually fairly clean. There was no purulence in the ethmoids and again entered the maxillary sinus with a curved olive tip suction, again copious purulence was evacuated. This was evacuated into a Luki trap and the sinus was irrigated repeatedly with a large curved olive tip suction and 30 cc syringe with saline. Afrin pledget was placed in the ethmoid cavities, and the left side was again addressed, the Afrin pledget was removed. All the sinuses in turn were irrigated repeatedly with saline. A long curved olive tip suction was inserted up into the frontal duct and it was irrigated as well. With everything really clean at that point, some large curved olive tip suction with some mupirocin was used to place into the ethmoid cavity to the left maxillary sinus. The same was done on the right side and again the frontal duct was probed with thin curved olive tip suction and then the maxillary sinus irrigated, mupirocin was placed in there and the nose was suctioned out. There was really no bleeding. The nasopharynx was clear. All the cultures were sent to the lab for aerobic, anaerobic, fungal, and Gram stain. She was awakened, extubated, and transported to recovery in good condition. No complication. No packing was placed. Eye exam was normal. TRANSINT:[id number] Voice Confirmation ID: [id number] DOCUMENT ID: [id number] CINTIA MCKEON MD at 1044 CC: [id number] DICTATION DATE: 10/09/17 1451 MVA REACTOR OPERATOR HEAD: 10/09/17 1540 [facility] 10/09/17 [facility] [address] [place] [address]
--- NOTE | ~2017-10-09 | HP ---
PATIENT: MADELAINE HERNANDZE MEDICAL RECORD: [id number] ACCOUNT: [id number] LOCATION:[facility] : 57 ADMISSION DATE: 10/09/17 HISTORY AND PHYSICAL EXAMINATION HISTORY OF PRESENT ILLNESS: Ms. Hernandez is a 62-year-old with chronic sinusitis problems. She is being admitted for bilateral sinus surgery. PAST MEDICAL HISTORY: Includes hypertension, coronary artery disease, COPD, hypothyroidism. PAST SURGICAL HISTORY: Includes quadruple bypass in 2004, multiple cardiac stents, the last one was in February 2017. CURRENT MEDICATIONS: Include Symbicort, Singulair, Plavix, nabumetone, levothyroxine, furosemide, allopurinol, pravastatin, albuterol, aspirin and oxygen. PHYSICAL EXAMINATION: GENERAL: She is alert, in no distress. FACE: Normal, symmetric, no lesions. EYES: Sclerae and conjunctivae are normal. EARS: Canals and TMs are normal. NOSE: She has ulceration from nasal oxygen, some dried blood crusting in the nose. ORAL CAVITY AND OROPHARYNX: Tube is in the midline. Palate is normal, still bit dry. No masses or lesions. NECK: No masses, no adenopathy. CHEST: Clear. CARDIOVASCULAR: Regular rate and rhythm, no murmur. DIAGNOSTIC STUDIES: Her CT shows extensive sinusitis. IMPRESSION: Although she has multiple medical problems, she has got opacification and pansinusitis with tremendous amount of crusting and debris in the nose, she has been refractory to medical management. PLAN: Bilateral middle meatal antrostomy, bilateral ethmoidectomy, bilateral sphenoidotomy for irrigation and cultures and clear this up, but does not look like she is going to respond to medical treatment. She has been failing for a long time. TRANSINT:[id number] Voice Confirmation ID: [id number] DOCUMENT ID: [id number] CINTIA LEMUS MD at 1729 CC: [id number] DICTATION DATE: 10/07/17 1452 POSTPARTUM NURSE: 10/07/17 1514 [facility] [address] [id number]
[2017-10-09 10:23] LABS: HEMATOCRIT 39.2 % (36.0-48.0); HEMOGLOBIN 12.9 g/dL (12-16); MCH 30.4 pg (26.0-34.0); MCHC 32.9 g/dL (31.0-37.0); MCV 92.5 fL (80.0-100.0); MEAN PLATELET VOLUME 10.9 fL (7.4-10.4); RBC 4.24 10x6/uL (4.00-5.40); RDW 14.6 % (11.5-14.5); WBC 14.4 10x3/uL (4.8-10.8)
[2017-10-09 10:51] VITALS: BP 161/78; Ht 156.2 cm; Wt 80.0 kg
[2017-10-14 10:19] LABS: FUNGUS STAIN Final report (())
[2017-10-14 16:16] LABS: AEROBE ID Final report (())
[2017-11-09 09:09] LABS: FUNGUS MYCOLOGY CULTURE Final report (())
== END | disposition home or self-care (01) ==
LOC: D.OPS 09:15
PROVIDERS: Anesthesiology; Otolaryngology
DX: J32.4 Chronic pansinusitis (principal); I10 Essential (primary) hypertension; I25.10 Atherosclerotic heart disease of native coronary artery without angina pectoris; J44.9 Chronic obstructive pulmonary disease, unspecified; E03.9 Hypothyroidism, unspecified; Z95.1 Presence of aortocoronary bypass graft; Z95.5 Presence of coronary angioplasty implant and graft; Z79.02 Long term (current) use of antithrombotics/antiplatelets; Z79.82 Long term (current) use of aspirin; Z99.81 Dependence on supplemental oxygen; Z79.899 Other long term (current) drug therapy

== ENCOUNTER 2017-12-11 05:37 | Day surgery (SDC) | payer BC ==
[~2017-12-11] VITALS: Ht 156.2 cm; Wt 80.7 kg
--- NOTE | ~2017-12-11 | OP ---
PATIENT NAME: MADELAINE FRIEND MEDICAL RECORD: [id number] :57 LOCATION:[facility] ADMISSION DATE: SURGEON: ENMANUEL FLOREZ MD DATE OF OPERATION: 12/11/2017 SURGEON: Enmanuel Florez MD ANESTHESIA: General, Dr. Echavarria. OPERATION PERFORMED: 1. Mediastinoscopy with biopsies. 2. Flexible fiberoptic bronchoscopy with BAL. PREOPERATIVE DIAGNOSIS: Mediastinal adenopathy. POSTOPERATIVE DIAGNOSIS: Mediastinal adenopathy. INDICATION FOR OPERATION: Undiagnosed mediastinal adenopathy. FINDINGS AT OPERATION: Nonmalignant lymph nodes without granulomatous disease. ESTIMATED BLOOD LOSS: Less than 3 mL. DESCRIPTION OF PROCEDURE: After informed consent, adequate preoperative medication evaluation, the patient was brought to the operating room, placed on the table in the supine position. After induction of general endotracheal anesthesia and application of appropriate monitoring devices, the neck and chest prepped and draped in sterile field, utilizing Betadine scrub, alcohol, and Betadine solution. Betadine-impregnated drape was also used. A 2 cm incision was made 2 cm above the sternal notch. Dissection carried down the fascia. Hemostasis maintained with electrocautery. Midline muscles were divided. The thyroid was retracted superiorly and the pretracheal fascia entered. The scope was advanced to the bifurcation and exam made for the mediastinal adenopathy. Large nodes were seen in the anterior paratracheal area. These were aspirated without blood return and biopsies taken. One biopsy was taken for a tissue culture, 1 was obtained for frozen section, which demonstrated no malignancy and no granulomatous disease. The remainder of the nodes were sent for permanent histology. The neck was irrigated. Instrument count and sponge count were correct times 2. Neck was closed in layers utilizing 3-0 Vicryl on the platysma, 5-0 subcuticular Monocryl on the skin. Sterile dressing was applied. The patient then underwent flexible fiberoptic bronchoscopy with a normal tracheobronchial tree. The bronchioalveolar lavage was performed in the right lower lobe. This was sent for cultures. The scope was withdrawn. The patient awakened and transferred to the postanesthesia recovery in satisfactory condition. TRANSINT:[id number] Voice Confirmation ID: [id number] DOCUMENT ID: [id number] OPERATIVE REPORT [id number] MADELAINE FRIEND EDWARD MD at 1309 CC: [id number] DICTATION DATE: 12/11/17 0941 TECHNICAL TRANSLATOR: 12/11/17 1144 [facility] [place] 12/11/17 [facility] [address] [place] [address]
--- NOTE | ~2017-12-11 | HP ---
PATIENT: MADELAINE FRIEND MEDICAL RECORD: [id number] ACCOUNT: [id number] LOCATION:D.OPS : 57 ADMISSION DATE: 12/11/17 HISTORY AND PHYSICAL EXAMINATION MADELAINE Santizo (62yo, F) ID# [id number]. Date/Time11/26/2017 01:88TMPSP94 1956[facility] Dept.NPP_[facility] ClinicProviderEDTANYA PFEIFFER MDInsuranceMed Primary: [place] Insurance # : [id number] Policy/Group # : [id number] PCP : FADIA MC Referring Provider Name : FADIA MC Employer Name : [employer] Prescription: PRIMFL - Member is eligible. Chief Complaint Followup: Mediastinal lymphadenopathy bronch/mediastinoscopy scheduled for 12/04 Patient's Care Team Primary Care Provider (): FADIA MC: [address] [place] [phone], , Referring Provider (): FADIA MC: [address] [place] [phone], , Referring Provider: OSMAN RODRÍGUEZ MD: Sandy TREVINO [address] [phone], , Patient's Pharmacies [facility] ([facility]): [address] [place] [address], , Vitals BP:146/84 sitting R arm 11/26/2017 01:27 pmHR:84/reg 11/26/2017 01:27 pmHt:5 ft 1.5 in 11/26/2017 01:24 pmWt:178 lbs 11/26/2017 01:28 pmBMI:33.1 11/26/2017 01:28 pmAllergies Reviewed Allergies NKDAMedications Reviewed Medications Adult Low Dose Aspirin 81 mg tablet,delayed release Take 1 tablet(s) every day by oral route.01/06/17 enteredCharity McAllisterallopurinol 300 mg tablet TK 1 T PO 2 XD107/12/16 filledsurescriptsamoxicillin 500 mg capsule TK 2 C PO BID FOR 21 DAYS11/06/17 filledPRIMEciprofloxacin 500 mg tablet TK 1 T PO BID FOR 14 DAYS.10/09/17 filledsurescriptsclopidogrel 75 mg tablet TK 1 T PO QD07/15/17 filledPRIMEcodeine sulfate 30 mg ibdpiq12/26/17 filledPRIMEcolchicine 0.6 mg /31/17 filledPRIMECoQ- enteredCharity McAllisterfluconazole 150 mg jofegl87/22/18 filledPRIMEfluticasone 50 mcg/actuation nasal spray,suspension SHAKE LQ AND U 1 SPR IEN QD10/07/17 filledPRIMEfurosemide 80 mg tablet TK 1 T PO 2 XD107/12/16 filledsurescriptsHYDROcodone 5 mg-acetaminophen 325 mg tablet TK 1 T PO Q 6 H PRN.10/09/17 filledsurescriptsipratropium-albuterol 0.5 mg-3 mg(2.5 mg base)/3 mL nebulization soln U 3 ML VIA NEB QID09/06/17 filledsurescriptslevothyroxine 200 mcg tablet TK 1 T PO D011/13/17 filledPRIMEmontelukast 10 mg tablet TAKE 1 TABLET BY MOUTH EVERY DAY09/11/17 filledPRIMEnabumetone 750 mg tablet TK 1 T PO BID WITH FOOD10/25/17 filledPRIMEoseltamivir 75 mg roerumd40/19/18 filledPRIMEpravastatin 80 mg tablet TK 1 T PO HS05/11/17 filledsurescriptssulfamethoxazole 800 mg-trimethoprim 160 mg HISTORY AND PHYSICAL [id number] MADELAINE FRIEND ieofdo05/22/18 filledPRIMESymbicort 160 mcg-4.5 mcg/actuation HFA aerosol inhaler INHALE 2 PUFFS PO BID.01/06/17 filledsurescriptsVirtussin AC 10 mg-100 mg/5 mL oral liquid TAKE 10 ML PO Q 4 H PRN COUGH07/27/17 filledsurescripts Some medications listed in Document: #[id number] could not be added to this patient's chart. Please review this document and add these medications to the patient's chart manually as needed. Vaccines Reviewed Vaccines Vaccine TypeDateAmt.RouteSiteLot #Mfr.Exp. 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 HPI Dyspnea Reported by patient. Quality: dyspnea Severity: moderate Duration: for 1 years HISTORY AND PHYSICAL [id number] MADELAINE FRIEND Onset/Timing: daily; during daytime Context: with activity Alleviating Factors: rest; relieved with oxygen Aggravating Factors: activity Associated Symptoms: no chest pain; no weight gain; fatigue Notes: WEARS 2L NC AT NIGHT mmediastinal lymphadenopathy ROS Patient reports nose/sinus problems. She reports shortness of breath when walking, shortness of breath when lying down, and light-headed on standing. She reports cough, wheezing, and shortness of breath. She reports muscle weakness. She reports weakness and dizziness. She reports fatigue and hair loss (LOTS MORE FREQUENTLY). She reports runny nose, sinus pressure, and frequent sneezing. ROS as noted in the HPI Physical Exam Patient is a 62-year-old female. Constitutional: General Appearance: well developed and overweight. Level of Distress: no acute distress. Ambulation: ambulating normally. Ears: Cerumen negative. Canal: no erythema or swelling. Tympanic Membrane: no bulging or fluid and perforated. Nasal: Nasal Mucosa: normal, no discharge, and pink and moist. Septum: not markedly deformed. Oropharynx: Lips, Teeth, and Gums normal dentition and lips. Oral Mucosa no ulcer, mass, inflammation, swelling, or leukoplakia and moist. Palate: normal hard palate and soft palate. Tongue: no erythema, lesions, enlargement, or swelling. Tonsils: no enlar gement or lesions. Posterior Pharynx no enlargement, erythema, exudate, ulcers, mass, cobblestoning, or white patches. Neck: Neck: supple, trachea midline, no masses, and Full ROM; no adenopathy. Thyroid: no enlargement or nodules and non-tender. Jugular Veins: no jugular venous distention or martinez a waves present and normal jugular venous pressure. Lungs: Respiratory effort: unlabored. Inspection: normal curve and chest wall expansion; no deformity, tenderness, or swelling; and tactile fremitus present and equal on both sides. Auscultation: no rales/crackles or rhonchi and decreased breath sounds,bilateral,bases. Percussion: no dullness, flatness, or hyperresonance. Cardiovascular: Precordial Exam: non displaced focal PMI. Heart Rate And Rhythm: normal heart rate and rhythm. Heart Sounds: no gallop, click, physiologically split S2, or pericardial friction rub and normal s1. Systolic Murmur: no systolic murmurs. Diastolic Murmur: no diastolic murmurs. Observation/Palpation of peripheral vascular system: no cyanosis. Abdomen: Inspection and Palpation: no tenderness or masses and soft and non-distended. Liver: non-tender and no hepatomegaly. Spleen: non-tender and no splenomegaly. Bowel Sounds: normal and no abdominal bruits. Lymphatic: no cervical lymph en largement, axillary LAD, or supraclavicular LAD. Musculoskeletal:: Gait and Station: normal gait. Extremities: Inspection/Palpation of digits and nails: no clubbing, cyanosis, HISTORY AND PHYSICAL [id number] MADELAINE FRIEND petechiae, ischemia, edema, or nodular lesions. Skin: Inspection and palpation: no rash, lesions, jaundice, ulcer, erythema, or induration and normal turgor. Neurologic: Mental Status/Orientation: oriented to person, place, problem/situation, and time. Mood/Affect: normal mood and affect. Sensation sensation normal. Cranial Nerves cranial nerves II - XII intact. Assessment / Plan mediastinal adenopathy 1. Chronic obstructive lung disease J44.9: Chronic obstructive pulmonary disease, unspecified CHRONIC OBSTRUCTIVE PULMONARY DISEASE (COPD): CARE INSTRUCTIONS LEARNING ABOUT COPD AND HOW TO PREVENT LUNG INFECTIONS 2. Mediastinal lymphadenopathy R59.0: Localized enlarged lymph nodes Discussion Notes I have discussed the patient's disease process with them in detail as well as the alternative methods of treatment we discussed mediasti noscopy and bronchoscopy including the expected benefits and risks which include bleeding, infection, stroke, , and imponderables. She understands all of the above and wishes to proceed with planned procedure ENMANUEL PFEIFFER MD at 1309 CC: [id number] DICTATION DATE: 11/26/17 [address]: HORACE 12/04/17 1131 [facility] 12/11/17 [place] [id number] [place] [address]
[2017-12-11 06:10] LABS: BASOPHILS 0.7 % (0-2); EOSINOPHILS 11.2 % (0-7); HEMATOCRIT 41.5 % (36.0-48.0); HEMOGLOBIN 13.6 g/dL (12-16); IMMATURE GRANULOCYTES 0.1 % (0-5); LYMPHOCYTES 36.7 % (15-50); MCHC 32.8 g/dL (31.0-37.0); MCV 94.5 fL (80.0-100.0); MEAN PLATELET VOLUME 11.1 fL (7.4-10.4); MONOCYTES 7.9 % (2-11); NEUTROPHILS 43.4 % (40-80); PLATELET COUNT 242 10x3/uL (130-400); RBC 4.39 10x6/uL (4.00-5.40); RDW 15.1 % (11.5-14.5); WBC 8.8 10x3/uL (4.8-10.8)
[2017-12-11 06:16] LABS: APPEARANCE HAZY (CLEAR); BILIRUBIN NEGATIVE (NEGATIVE); COLOR YELLOW (YELLOW); GLUCOSE NEGATIVE (NEGATIVE); KETONE NEGATIVE (NEGATIVE); NITRITE NEGATIVE (NEGATIVE); PROTEIN 2+ mg/dL (NEGATIVE); RED CELLS - URINE 0-5 /hpf (0-5); SPECIFIC GRAVITY 1.025 (1.005-1.020); UROBILINOGEN NORMAL (NORMAL); WHITE CELLS - URINE 0-5 /hpf (0-5)
[2017-12-11 06:17] LABS: APTT 25.9 SECONDS (22.8-39.4); EPITHELIAL CELLS OCC /hpf (0-5); INR 0.96 (0.85-1.17); PROTIME 12.4 SECONDS (11.6-15.0)
[2017-12-11 06:25] LABS: ALBUMIN 3.6 g/dL (3.4-5.0); ANION GAP 13.1 mmol/L (8-16); BILIRUBIN - TOTAL 0.2 mg/dL (0.2-1.3); CALCIUM 8.9 mg/dL (8.5-10.1); CARBON DIOXIDE 27.8 mmol/L (21.0-32.0); POTASSIUM - SERUM 3.9 mmol/L (3.5-5.1); PROTEIN - SERUM 7.9 g/dL (6.4-8.2)
[2017-12-11 07:02] VITALS: BP 167/78; Ht 156.2 cm; Wt 80.7 kg
[2017-12-11] MEDS ORDERED: ULTRAM50 MG PO (09:48)
[2017-12-12 18:07] LABS: AFB SPECIMEN PROCESSING Concentration (())
[2017-12-13 12:08] LABS: AFB SPECIMEN PROCESSING Concentration (())
[2017-12-14 09:08] LABS: FUNGUS STAIN Final report (())
[2017-12-16 10:19] LABS: FUNGUS STAIN Final report (())
[2017-12-23 18:08] LABS: AEROBE ID Final report (())
[2018-01-07 20:09] LABS: FUNGUS MYCOLOGY CULTURE Final report (())
[2018-01-11 08:08] LABS: FUNGUS MYCOLOGY CULTURE Final report (())
[2018-02-04 15:25] LABS: ACID FAST CULTURE Negative (()); ACID FAST SMEAR Negative (())
== END 2017-12-11 11:55 | disposition home or self-care (01) ==
LOC: D.OPS 05:37
PROVIDERS: Internal Medicine Cardiovascular Disease
DX: R59.0 Localized enlarged lymph nodes (principal); Z01.812 Encounter for preprocedural laboratory examination

== ENCOUNTER → 2018-04-12 11:23 | Outpatient (CLI) | payer OTHER ==
[2017-12-11 07:02] VITALS: BMI 32.7
[~2018-04-12 11:23] MED LIST changes: +ULTRAM50 MG PO
== END | disposition home or self-care (01) ==
LOC: D.CT 09:30
DX: R59.0 Localized enlarged lymph nodes (principal)

== ENCOUNTER 2018-06-25 19:32 | Emergency (ER) | payer OTHER ==
[~2018-06-25] VITALS: Ht 156.2 cm; Wt 79.1 kg
[2018-06-25 19:32] VITALS: Ht 156.2 cm; Wt 79.1 kg
[2018-06-25] MEDS ORDERED: TORADOL10 MG PO (21:38)
[2018-06-25 22:05] VITALS: BP 128/48
== END 2018-06-25 22:05 | disposition home or self-care (01) ==
LOC: D.ER 19:32
DX: R51 Headache (principal); M54.2 Cervicalgia; V43.62XA Car passenger injured in collision with other type car in traffic accident, initial encounter; Y93.89 Activity, other specified; Y92.410 Unspecified street and highway as the place of occurrence of the external cause

== ENCOUNTER → 2018-09-03 07:14 | Outpatient (CLI) | payer OTHER ==
[2018-06-25 19:32] VITALS: BMI 32.4
[~2018-09-03 07:14] MED LIST changes: +TORADOL10 MG PO
== END | disposition home or self-care (01) ==
LOC: D.US 07:14
PROVIDERS: ATTEND Internal Medicine Gastroenterology
DX: R10.13 Epigastric pain (principal)

== ENCOUNTER → 2018-09-17 07:30 | Outpatient (CLI) | payer OTHER ==
[2018-06-25 19:32] VITALS: BMI 32.4
== END | disposition home or self-care (01) ==
LOC: D.NM 07:30
PROVIDERS: ATTEND Internal Medicine Gastroenterology
DX: K21.9 Gastro-esophageal reflux disease without esophagitis (principal); R14.0 Abdominal distension (gaseous)

== ENCOUNTER → 2019-01-07 12:18 | Outpatient (CLI) | payer OTHER ==
[2018-06-25 19:32] VITALS: BMI 32.4
== END | disposition home or self-care (01) ==
LOC: D.CT 12-16 10:00
PROVIDERS: ATTEND Internal Medicine Pulmonary Disease
DX: R59.0 Localized enlarged lymph nodes (principal)

== ENCOUNTER 2019-05-26 08:33 | Inpatient (IN) | payer OTHER ==
[~2019-05-26] VITALS: Ht 156.2 cm; Wt 79.5 kg
[2019-05-26] MEDS ORDERED: KENALOG 0.1 % O15 GM TOPICAL (08:45)
[2019-05-26] MEDS ORDERED: [UNRECOGNIZED DRUG - OTHER] (08:46)
[2019-05-26 09:41] LABS: CALC OSMOLALITY 277 mosm/kg (275-300); CALCIUM 10.3 mg/dL (8.5-10.1); CARBON DIOXIDE 31.2 mmol/L (21.0-32.0); CHLORIDE - SERUM 96 mmol/L (98-107); CREATININE - SERUM 0.9 mg/dL (0.6-1.3); GLUCOSE 123 mg/dL (74-106); POTASSIUM - SERUM 3.7 mmol/L (3.5-5.1); SODIUM 137 mmol/L (136-145); UDS - AMPHET NEGATIVE QUAL (NEGATIVE); UDS - BARB NEGATIVE QUAL (NEGATIVE); UDS - BENZO NEGATIVE QUAL (NEGATIVE); UDS - COCAINE NEGATIVE QUAL (NEGATIVE); UDS - OPIATE NEGATIVE QUAL (NEGATIVE); UDS - PCP NEGATIVE QUAL (NEGATIVE); UDS - THC NEGATIVE QUAL (NEGATIVE); UREA NITROGEN 22 mg/dL (7-18); eGFR NON AFRICAN AMERICAN 67 mL/min (90-120)
[2019-05-26 09:43] LABS: APTT 32.3 SECONDS (22.8-39.4); INR 1.01 (0.85-1.17); PROTIME 12.8 SECONDS (11.6-15.0)
[2019-05-26 09:45] LABS: BASOPHILS 0.5 % (0-2); EOSINOPHILS 1.8 % (0-7); HEMATOCRIT 47.9 % (36.0-48.0); HEMOGLOBIN 16.3 g/dL (12-16); IMMATURE GRANULOCYTES 0.4 % (0-5); LYMPHOCYTES 28.2 % (15-50); MCH 31.8 pg (26.0-34.0); MCV 93.6 fL (80.0-100.0); MEAN PLATELET VOLUME 11.7 fL (7.4-10.4); MONOCYTES 7.6 % (2-11); NEUTROPHILS 61.5 % (40-80); RBC 5.12 10x6/uL (4.00-5.40); RDW 13.4 % (11.5-14.5); WBC 13.7 10x3/uL (4.8-10.8)
[2019-05-26 09:46] LABS: PLATELET COUNT 345 10x3/uL (130-400)
[2019-05-26 09:57] LABS: ALBUMIN 4.6 g/dL (3.4-5.0); ALKALINE PHOSPHATASE 119 U/L (46-116); ALT (SGPT) 32 U/L (10-68); BILIRUBIN - TOTAL 0.62 mg/dL (0.2-1.3); CKMB 0.7 U/L (0.0-3.6); CREATINE KINASE 58 UL (21-215); MAGNESIUM - SERUM 2.1 mg/dL (1.8-2.4); PROTEIN - SERUM 8.7 g/dL (6.4-8.2); THYROID STIMULATING HORMONE 4.51 uIU/mL (0.36-3.74)
[2019-05-26 09:58] LABS: TROPONIN-I < 0.017 ng/mL (0.000-0.060)
--- NOTE | 2019-05-26 09:59 | NUR ---
DR HEATH NOTIFIED OF CRITICAL AMMONIA LEVEL 102, NO ORDERS RECIEVED.
[2019-05-26 10:05] LABS: AMORPHOUS SEDIMENT <1+ /lpf (NONE SEEN); APPEARANCE CLEAR (CLEAR); BACTERIA MODERATE /hpf (NEGATIVE); BILIRUBIN NEGATIVE (NEGATIVE); COLOR YELLOW (YELLOW); EPITHELIAL CELLS 0-5 /hpf (0-5); GLUCOSE NEGATIVE (NEGATIVE); KETONE NEGATIVE (NEGATIVE); MUCUS <1+ /lpf (NONE SEEN); NITRITE NEGATIVE (NEGATIVE); PROTEIN TRACE mg/dL (NEGATIVE); RED CELLS - URINE RARE /hpf (0-5); UROBILINOGEN NORMAL (NORMAL); WHITE CELLS - URINE OCC /hpf (NEGATIVE)
[2019-05-26 10:17] VITALS: BP 144/60
--- NOTE | 2019-05-26 13:20 | NUR ---
PT ARRIVED VIA STRECHER. DENIES NEEDS OR PAIN AT THIS TIME. RR EVEN AND UNLABORED. VSS ON ROOM AIR. SPOUSE AT BEDSIDE. 20G IV NOTED TO LEFT AC, SL. BED IN LOWEST POSITION, CALL LIGHT WITHIN REACH, PT ORIENTED TO ROOM. WILL CONTINUE TO MONITOR.
[2019-05-26 16:00] VITALS: BP 153/67
--- NOTE | 2019-05-26 16:30 | NUR ---
SHEET METAL [employer]OP FOREMAN ATTEMPTED TWICE TO CALL DR. ACHARYA WITH NO ANSWER. TEXTED DR. ACHARYA. HE REPLIED WITH "TRANSFER TO NEUROLOGY TO OUTSIDE HOSPITAL FOR CVA". DR. FOWLER AGREED. D/C INSTRUCTIONS WERE PUT IN FOR TRANSFER. TRANSFER CENTER CALLED. ALL NECESSARY INFORMATION FAXED TO THEM. PT AWARE OF SITUATION AND VERBALIZED UNDERSTANDING. AWAITING TRANSFER CONFIRMATION
[2019-05-26] MEDS ORDERED: ECOTRIN325 MG PO (17:48)
[2019-05-26 18:27] VITALS: BP 123/82; Ht 156.2 cm; Wt 79.5 kg
--- NOTE | 2019-05-26 19:10 | NUR ---
BEDSIDE REPORT RECEIVED FROM DAY SHIFT, PT CARE ASSUMED. INTRODUCED SELF AND WROTE NAME ON BOARD. PT SITTING UP IN BED, AAOX4, C/O HEADACHE OF 5, ON A SCALE OF 0-10. DENIES ANY OTHER NEEDS AT THIS TIME. FAMILY AT BEDSIDE. BED IN LOWEST POSITION, SR X2, CALL LIGHT WITHIN REACH. WILL CONTINUE TO MONITOR.
--- NOTE | 2019-05-26 19:59 | NUR ---
SPOKE WITH TRANSFER CENTER, STATED [facility] WILL NOT ACCEPT PT UNTIL IN THE MORNING PER THEIR DESIGN ASSISTANT AND HOSPITALIST. DR. FOWLER MADE AWARE. ORDERS FOR TELEMETRY AND Q4 NEURO CHACKS RECIEVED PER TELEPHONE.
[2019-05-26 20:00] VITALS: BP 136/64
[2019-05-26 23:00] VITALS: BP 151/65
--- NOTE | 2019-05-27 00:30 | NUR ---
REPORT GIVEN TO HANNAH TANG RN, AT [facility]. PT TRANSFERED VIA STRETCHER WITH [facility] EMS. PIV TO LEFT AC SALINE LOCK. PT'S BELONGINGS AND PAPERWORK SENT WITH EMS.
--- NOTE | 2019-05-27 12:04 | NUR ---
ON 05/26/19 AT [address] FOWLER TO DISCUSS THE TRANSFER OF THIS PT TO [facility]. HE STATED HE NEEDED TO TRANSFER THE PATIENT TO [facility] AND THAT HE WOULD REMAIN THE PRIMARY FIELD TALENT QUALIFICATION SPECIALIST HE HAS ADMITTING PRIVELAGES THERE ALSO. I CALLED THE TRANSFER CENTER TO INFORM THEM OF THE TRANSFER TO TAKE PLACE TONIGHT WITH DR FOWLER REMAINING THE PATIENT'S PRIMARY PHYSICIAN W/NEURO ON CONSULT. ARRANGEMENTS WERE MADE AND THE PATIENT WAS TRANSFERRED ORDERED.
--- NOTE | 2019-05-27 13:19 | HP ---
PATIENT: MADELAINE FRIEND MEDICAL RECORD: [id number] ACCOUNT: [id number] LOCATION:[address] : 56 ADMISSION DATE: 05/26/19 PCP: FADIA MC MD HISTORY AND PHYSICAL EXAMINATION DATE OF ADMISSION: 05/26/2019. CHIEF COMPLAINT: Confusion and slurred speech. HISTORY OF PRESENT ILLNESS: This is a 63-year-old female with a history of heart disease, hyperlipidemia, COPD, and asthma who states she was fine last night when she went to bed and when she woke up this morning, she noticed her speech was not right. She felt confused. 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 She has had no obvious weakness in arm or leg, but states that she has had some mild tingling off and on in her left upper extremity for the last couple of weeks. She denies chest pain or palpitations. She has noticed a headache in the right frontal area. She was brought to the ER where her white count is mildly elevated at 13,000. Liver functions were fine. Ammonia level was 102. Chest x-ray showed no acute problems. CT of the head showed no hemorrhage, but there was a small area of hypoattenuation in the right frontal lobe suggesting acute versus subacute infarct. CTA of the head and carotid with and without contrast shows approximately 60% narrowing of the left internal carotid artery. She is admitted for further evaluation. PAST MEDICAL AND SURGICAL HISTORY: Gout, hyperlipidemia, coronary artery disease, Graves' disease, status post I-131 ablation, COPD, asthma. She has had mediastinal lymphadenopathy with a biopsy by Dr. Florez. It was negative. PAST SURGICAL HISTORY: Four 2-vessel coronary artery bypass graft and then cardiac stents, followed by Dr. Chung. She had nasal surgery by Dr. Mckeon in October 2017. DRUG ALLERGIES: None. HOME MEDICATIONS: Nabumetone 750 mg twice a day, levothyroxine 250 mcg once a day, Lasix 80 mg twice a day, allopurinol 300 mg twice a day, aspirin 81 mg once a day, pravastatin 80 mg once a day, montelukast 10 mg once a day, DuoNeb via nebulizer every 6 hours as needed for wheeze. She takes CoQ10 once a day. HABITS: Former smoker, no alcohol or drugs. 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 FAMILY HISTORY: Father with coronary artery disease and history of a stroke. Mother with history of lung cancer and hypertension. REVIEW OF SYSTEMS: GENERAL: No major weight changes. HEENT: No particular sinus or allergy problems. RESPIRATORY: Has history of asthma/COPD, followed by Dr. Hines. CARDIAC: History of coronary artery disease followed by Dr. Chung. GASTROINTESTINAL: She has reflux. GENITOURINARY: No significant problems there. MUSCULOSKELETAL: She has gout flareups at times. HISTORY AND PHYSICAL [id number] RONNAMADELAINE STRONG NEUROLOGIC: No seizures or migraine headaches. PSYCHIATRIC: No depression or melancholia. PHYSICAL EXAMINATION: VITAL SIGNS: Temperature 97.4, pulse 95, respirations 18, blood pressure 118/89, and O2 sat 99%. GENERAL: She is awake and alert. She is emotional. SKIN: Warm and dry. HEENT: Grossly within normal limits. NECK: Supple with bruit heard on the left. HEART: Regular rate and rhythm. No murmurs appreciated. LUNGS: Clear. ABDOMEN: Soft. EXTREMITIES: No edema. NEUROLOGIC: There is mild slurring of speech. 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 She moves arms and legs without difficulty. LABORATORY DATA: CBC with a white count of 13,700, hemoglobin 16.3, hematocrit 47.9. Sodium 137, potassium 3.7, chloride 96, CO2 31.2, BUN 22, creatinine 0.9, glucose 123, calcium is 10.3, INR 1.01, magnesium 2.1. Liver functions are all normal. Urinalysis yellow, clear, trace leukocyte esterase, moderate bacteria. Ammonia level is high at 102. Urine drug screen is negative. Troponin less than 0.017. TSH little elevated at 4.5. IMAGING: Chest x-ray shows no acute process. CT of the head shows no hemorrhage. There is a small area of hypoattenuation in the right frontal area. Acute versus subacute infarct. CTA of the head and carotids with and without contrast shows approximately 60% narrowing of the left internal carotid artery. ASSESSMENT: 1. Acute cerebrovascular accident. 2. Elevated ammonia level of uncertain significance. 3. History of heart disease. 4. History of hyperlipidemia. PLAN: We will ask Dr. Agarwal to see the patient regarding the neurologic changes and 60% narrowing of the left internal carotid artery with bruit. Check echo, place her on telemetry, check lipids. Increase aspirin 325 mg a day tomorrow. We will have her assessed for PT, OT, speech therapy. I will check MRI of the brain. Other tests and procedures as warranted. TRANSINT:[id number] Voice Confirmation ID: [id number] DOCUMENT ID: [id number] HISTORY AND PHYSICAL [id number] MADELAINE FRIEND WILLIAM MD at 1319 CC: [id number] DICTATION DATE: 05/26/19 1641 IRON WORKER: 05/26/19 1708 DIS IN 05/27/19 [facility] [address] [place] [address]
== END 2019-05-27 00:45 | DRG 66 ==
LOC: D.ER 08:33 → D.M2 12:10 → OBSVTIME 12:10 → D.M2 12:12
PROVIDERS: Emergency Medicine; ADMIT Family Medicine; ATTEND Family Medicine
DX: I63.9 Cerebral infarction, unspecified (principal); E78.5 Hyperlipidemia, unspecified; I25.10 Atherosclerotic heart disease of native coronary artery without angina pectoris; J44.9 Chronic obstructive pulmonary disease, unspecified; E03.9 Hypothyroidism, unspecified; E86.0 Dehydration; Z87.891 Personal history of nicotine dependence